=== PATIENT | female | born 1940 | race Caucasian/White ===

== ENCOUNTER 2021-10-04 06:23 | Observation (INO) | payer OTHER ==
[2021-10-02 10:37] LABS: BASOPHILS % (AUTO) 0.3 % (0.0-5.0); EOSINOPHILS % (AUTO) 0.5 % (0.0-8.0); HEMATOCRIT 46.1 % (36-48); LYMPHOCYTES % (AUTO) 30.2 % (21.0-51.0); MEAN CORPUSCULAR HGB CONC 31.9 g/dL (32.0-36.0); MEAN CORPUSCULAR VOLUME 87.8 fL (79-99); NEUTROPHILS % (AUTO) 61.7 % (40.0-77.0); PLATELET COUNT (AUTO) 205 K/uL (130-400); RED BLOOD CELL COUNT(AUTO) 5.25 MIL/uL (4.00-5.50); WHITE BLOOD COUNT (AUTO) 8.9 K/uL (4.8-10.8)
[2021-10-02 10:44] LABS: POTASSIUM 5.2 mmol/L (3.5-5.1)
[2021-10-02 10:50] LABS: APPEARANCE,URINE CLEAR (CLEAR); BILIRUBIN,URINE NEGATIVE (NEGATIVE); COLOR,URINE YELLOW (YELLOW); GLUCOSE, URINE (UA) NEGATIVE (NEGATIVE); KETONES,URINE NEGATIVE (NEGATIVE); LEUKOCYTE ESTERASE ,URINE NEGATIVE (NEGATIVE); NITRATE,URINE NEGATIVE (NEGATIVE); OCCULT BLOOD,URINE NEGATIVE (NEGATIVE); PROTEIN,URINE NEGATIVE (NEGATIVE); UROBILINOGEN,URINE 0.2 mg/dL (0.2-1.0)
[2021-10-02 11:09] LABS: INR 0.94 (0.85-1.15); PROTHROMBIN TIME 10.3 SEC (9.6-11.6)
[2021-10-03 12:21] VITALS: BP 174/80
[2021-10-04] VITALS (27 sets, daily range): BP systolic 99–129; BP diastolic 51–74
[~2021-10-04] VITALS: Ht 162.6 cm; Wt 92.2 kg
[~2021-10-04 06:23] MED LIST: CARV25TA PO; ISOS60TA77 PO; LEVO50CA4 PO; LEVO75CA5 PO; LOVA10TA2 PO; SPIR25TA6 PO; [UNRECOGNIZED DRUG - OTHER] PO
[2021-10-04] MEDS ORDERED: LACTATED RINGERS 1000ML 1,000 ML IV ONE (06:52)
[2021-10-04] MEDS ORDERED: CLINDAMYCIN IVPB 900MG/50ML 50 ML IV ONE (06:52)
[2021-10-04] MEDS ORDERED: TRANEXAMIC ACID 1000MG/10ML ONE ×2 (08:20→14:33)
[2021-10-04] MEDS ORDERED: VANCOMYCIN 1G VIAL ONE (08:48)
[2021-10-04] MEDS: CLINDAMYCIN IVPB 900MG/50ML 50 ML IV SCH ×3 (09:00→22:35)
[2021-10-04] MEDS ORDERED: ACETAMINOPHEN 500 MG TABLET ONE (09:07)
[2021-10-04] MEDS ORDERED: CELECOXIB 200 MG CAP ONE (09:07)
[2021-10-04] MEDS ORDERED: KETOROLAC 15MG/ML VIAL (15MG/ML) ONE (09:07)
[2021-10-04] MEDS ORDERED: VANCOMYCIN 1G/250ML KIT 250 ML IV ONE (09:08)
[2021-10-04] MEDS ORDERED: LIDOCAINE PF 100MG/5ML (2%) SYRINGE 5ML ONE (10:09)
[2021-10-04] MEDS ORDERED: FENTANYL CITRATE PF 50 MCG/1 ML 2ML VIAL ONE (10:09)
[2021-10-04] MEDS ORDERED: SUCCINYLCHOLINE CHLORIDE 20 MG/ML 10 ML VIAL ONE (10:09)
[2021-10-04] MEDS ORDERED: MIDAZOLAM HCL 1 MG/ML 2ML VIAL ONE (10:09)
[2021-10-04] MEDS ORDERED: PROPOFOL 10 MG/ML 20ML VIAL IV ONE (10:09)
[2021-10-04] MEDS ORDERED: ROCURONIUM 10MG/1ML SYR 10 MG/ML ML ONE ×2 (10:10→12:51)
[2021-10-04] MEDS ORDERED: ROPIVACAINE 0.5% 5MG/ML 30ML IJ ONE (10:12)
[2021-10-04] MEDS ORDERED: EPHEDRINE SULFATE 50 MG/ML AMPULE ONE ×2 (10:50→15:03)
[2021-10-04] MEDS ORDERED: GLYCOPYRROLATE 1 MG/5 ML SYRINGE ONE ×2 (11:33→14:43)
[2021-10-04] MEDS ORDERED: VANCOMYCIN 1G VIAL IRRIG ONE ×2 (11:35)
[2021-10-04] MEDS ORDERED: OXYCODONE HCL 5 MG TAB PO PRN (14:30)
[2021-10-04] MEDS ORDERED: CALCIUM CARB 500MG PO PRN (14:30)
[2021-10-04] MEDS ORDERED: DiphenhydrAMINE HCL 50 MG/ML VIAL IVP PRN (14:30)
[2021-10-04] MEDS ORDERED: ONDANSETRON 4MG INJ IVP PRN (14:30)
[2021-10-04] MEDS ORDERED: FE FUMARATE/FA/MV, MIN COMB#15 1 TAB PO PRN (14:30)
[2021-10-04] MEDS ORDERED: TRAMADOL HCL 50 MG TABLET PO PRN (14:30)
[2021-10-04] MEDS ORDERED: POTASSIUM CHLORIDE 10% ELIXIR 20 MEQ/15 ML UDCUP PO PRN (14:30)
[2021-10-04] MEDS ORDERED: POTASSIUM CHLORIDE 20MEQ/100ML 100 ML IV PRN (14:30)
[2021-10-04] MEDS ORDERED: LIDOCAINE HCL-MPF 1% 2ML VIAL IV PRN (14:30)
[2021-10-04] MEDS ORDERED: 0.9% NACL 250ML IV SCH (14:30)
[2021-10-04] MEDS ORDERED: KCL 20 MEQ ERTAB PO PRN (14:30)
[2021-10-04] MEDS: ACETAMINOPHEN 500 MG TABLET PO SCH ×2 (14:30→22:28)
[2021-10-04] MEDS ORDERED: NEOSTIGMINE 5MG/5ML SYR IV ONE (14:43)
[2021-10-04] MEDS: 0.9%NACL 1000ML 1,000 ML IV SCH ×2 (15:16→17:30)
[2021-10-04] MEDS ORDERED: SUGAMMADEX SODIUM 200 MG/2 ML VIAL IV ONE (15:31)
[2021-10-04] MEDS ORDERED: LIDOCAINE HCL MPF 1% 5ML VIAL IV PRN (16:00)
[2021-10-04] MEDS ORDERED: GUAIFENESIN-DM 200/20 MG 10 ML PO PRN (18:30)
[2021-10-04] MEDS ORDERED: VANCOMYCIN 1G VIAL IVPB SCH (22:00)
[2021-10-04] MEDS: CELECOXIB 200 MG CAP PO SCH (22:25)
[2021-10-04] MEDS: FAMOTIDINE 20MG TAB PO SCH (22:25)
[2021-10-04] MEDS: PREGABALIN 25 MG CAP PO SCH (22:25)
[2021-10-05] MEDS: VANCOMYCIN 500MG+NS 100ML 100 ML IV SCH ×2 (00:22→09:14)
[2021-10-05] MEDS: KETOROLAC 15MG/ML VIAL (15MG/ML) IV PRN ×2 (03:10→07:58)
[2021-10-05 04:14] VITALS: BP 126/69
[2021-10-05 04:20] LABS: CREATININE 0.7 mg/dL (0.5-1.5); POTASSIUM 3.8 mmol/L (3.5-5.1)
[2021-10-05 04:25] LABS: HEMATOCRIT 36.2 % (36-48); MEAN CORPUSCULAR HEMOGLOBIN 28.1 pg (27.0-33.0); MEAN CORPUSCULAR HGB CONC 32.6 g/dL (32.0-36.0); MEAN CORPUSCULAR VOLUME 86.2 fL (79-99); RED BLOOD CELL COUNT(AUTO) 4.2 MIL/uL (4.00-5.50); RED CELL DISTRIBUTION WIDTH 14.5 % (11.0-15.5); WHITE BLOOD COUNT (AUTO) 7.6 K/uL (4.8-10.8)
[2021-10-05] MEDS: 0.9%NACL 1000ML 1,000 ML IV SCH ×2 (04:28→09:19)
[2021-10-05] MEDS: CLINDAMYCIN IVPB 900MG/50ML 50 ML IV SCH (04:29)
[2021-10-05] MEDS: ACETAMINOPHEN 500 MG TABLET PO SCH ×3 (06:30→21:10)
[2021-10-05 07:30] VITALS: BP 134/69
[2021-10-05] MEDS: PANTOPRAZOLE 40 MG TAB DR PO SCH (07:30)
[2021-10-05] MEDS: LEVOTHYROXINE 75 MCG TABLET PO SCH (07:30)
[2021-10-05] MEDS ORDERED: BISACODYL 10 MG SUPP.RECT RC ONE (08:59)
[2021-10-05] MEDS: CELECOXIB 200 MG CAP PO SCH ×2 (09:13→21:09)
[2021-10-05] MEDS: FAMOTIDINE 20MG TAB PO SCH ×2 (09:13→21:10)
[2021-10-05] MEDS: POLYETHYLENE GLYCOL 3350 17 GM POWD.PACK PO SCH (09:13)
[2021-10-05] MEDS: CARVEDILOL 25 MG TABLET PO SCH ×2 (09:14→21:09)
[2021-10-05] MEDS: PREGABALIN 25 MG CAP PO SCH ×2 (09:14→21:09)
[2021-10-05] MEDS: SPIRONOLACTONE 25 MG TAB PO SCH (09:14)
[2021-10-05 11:00] VITALS: BP_SYST 125; BP_SYST 137; BP_DIAS 61; BP_DIAS 66
[2021-10-05] MEDS: LEVOTHYROXINE 50 MCG TABLET PO SCH (11:16)
[2021-10-05] MEDS ORDERED: MAGNESIUM CITRATE 296 ML SOLUTION PO ONE (13:00)
[2021-10-05] MEDS ORDERED: MAGNESIUM CITRATE 296 ML SOLUTION ONE (14:24)
[2021-10-05 16:00] VITALS: BP 131/71
[2021-10-05 20:55] VITALS: BP 125/68
[2021-10-05] MEDS ORDERED: ISOSORBIDE MONO 60MG SR TAB PO SCH (21:00)
[2021-10-05] MEDS ORDERED: SIMVASTATIN 10 MG TABLET PO SCH (21:00)
[2021-10-05 23:45] VITALS: BP 111/53
[2021-10-06 04:09] VITALS: BP 100/52
[2021-10-06] MEDS: LEVOTHYROXINE 50 MCG TABLET PO SCH (06:05)
[2021-10-06] MEDS: LEVOTHYROXINE 75 MCG TABLET PO SCH (06:05)
[2021-10-06] MEDS: PANTOPRAZOLE 40 MG TAB DR PO SCH (06:05)
[2021-10-06] MEDS: OXYCODONE HCL 5 MG TAB PO PRN ×2 (06:06→09:24)
[2021-10-06] MEDS: ACETAMINOPHEN 500 MG TABLET PO SCH ×2 (06:08→14:14)
[2021-10-06 08:00] VITALS: BP 131/59
[2021-10-06] MEDS: PREGABALIN 25 MG CAP PO SCH (09:23)
[2021-10-06] MEDS: CELECOXIB 200 MG CAP PO SCH (09:24)
[2021-10-06] MEDS: CARVEDILOL 25 MG TABLET PO SCH (09:24)
[2021-10-06] MEDS: SPIRONOLACTONE 25 MG TAB PO SCH (09:24)
[2021-10-06] MEDS: POLYETHYLENE GLYCOL 3350 17 GM POWD.PACK PO SCH (09:25)
[2021-10-06] MEDS: FAMOTIDINE 20MG TAB PO SCH (09:26)
[2021-10-06] MEDS ORDERED: HYDR-4060 PO (10:58)
[2021-10-06 12:00] VITALS: BP_SYST 93; BP_SYST 96; BP_DIAS 41; BP_DIAS 53
[2021-10-07] MEDS ORDERED: BISACODYL 10 MG SUPP.RECT RC PRN (14:30)
== END 2021-10-06 14:50 | disposition home or self-care (01) ==
LOC: DAH 06:23 → DAHIP 06:24 → 4BH 17:13
PROVIDERS: ADMIT Orthopaedic Surgery; ATTEND Orthopaedic Surgery
DX: M75.101 Unspecified rotator cuff tear or rupture of right shoulder, not specified as traumatic (principal); Z20.822 Contact with and (suspected) exposure to COVID-19; M12.811 Other specific arthropathies, not elsewhere classified, right shoulder; E03.9 Hypothyroidism, unspecified; Z98.890 Other specified postprocedural states; Z96.611 Presence of right artificial shoulder joint; Z96.652 Presence of left artificial knee joint; Z79.899 Other long term (current) drug therapy
CPT/HCPCS: 23472; 36415 ×4; 64415; 73030; 76942; 80048 ×2; 80202; 81003; 84132; 85025; 85027; 85610; 87088; 87635; 87641; 96365; 96366 ×2; 96367; 96375; 96376; 97039 ×2; 97116; 97161; 97530 ×3; A4215; A4221; A4222; A4223; A4565; A4600; A4649 ×4; A4663; A5120; A6206; C1713; C1776; C9803; G0168; G0378 ×47; J0330; J1885 ×3; J2001; J2250; J2405; J2704; J2710; J2795; J3010; J3370 ×7; J3480; J3490 ×10; J7030 ×3; J7050; J7120